=== PATIENT | female | born 1970 | race Caucasian/White ===

== ENCOUNTER 2018-06-14 07:39 | Emergency (ER) | payer MEDICAID ==
--- NOTE | 2018-06-14 08:34 | EDM.PDOC ---
ED HPI GENERAL MEDICAL PROBLEM - General Chief Complaint: Lower Extremity Injury/Pain Stated Complaint: RIGHT LEG PAIN Time Seen by Provider: 06/14/18 08:20 Source of Information: Reports: Patient History Limitations: Reports: No Limitations - History of Present Illness INITIAL COMMENTS - FREE TEXT/NARRATIVE: 48 yo female had recent R ankle surgery in [place]. She awoke this morning with increased pain in that ankle and thought her R calf was swollen. She called the nurse direct line and was told to come to the ER to be assessed for a blood clot. She denies and SOB or pleuritic chest pain. No fever. F/U in about a week in [place] is scheduled. Lives in [place]. Here with her . Onset: Today Onset Date: 06/14/18 Duration: Hour(s):, Improving (better now than when she first awoke today.) Location: Reports: Lower Extremity, Right Quality: Reports: Ache, Throbbing Severity: Moderate Improves with: Reports: Medication Worsens with: Reports: Other (medicine wearing off) Context: Reports: Other (See HPI) Associated Symptoms: Reports: No Other Symptoms Treatments OPERATIONAL RISK MANAGER: Reports: Other (see below) (prescribed pain meds) Right Ankle Pain Score (Numeric/FACES): 7 - Related Data Allergies Allergy/AdvReac Type Severity Reaction Status Date / Time blue dye Allergy Hives Verified 06/14/18 08:02 Home Meds: Home Meds Aspirin 325 mg PO DAILY 06/14/18 [History] Chlorthalidone 25 mg PO DAILY 06/14/18 [History] Levothyroxine [Synthroid] 175 mcg PO DAILY 06/14/18 [History] atorvaSTATin [Lipitor] 40 mg PO BEDTIME 06/14/18 [History] hydrOXYzine HCl [hydrOXYzine] 25 mg PO Q8H PRN 06/14/18 [History] oxyCODONE HCl/Acetaminophen [Percocet 5-325 mg Tablet] 1 tab PO Q4HR PRN [History] Past Medical History Endocrine/Metabolic History: Reports: Hypothyroidism - Past Surgical History HEENT Surgical History: Reports: Other (See Below) Other HEENT Surgeries/Procedures: ear surgeries GI Surgical History: Reports: Cholecystectomy Female Surgical History: Reports: Section Musculoskeletal Surgical History: Reports: Other (See Below) Other Musculoskeletal Surgeries/Procedures:: ligament repair and scope on right annkle Social & Family History - Tobacco Use Smoking Status *Q: Never Smoker - Recreational Drug Use Recreational Drug Use: No Review of Systems - Review of Systems Review Of Systems: See Below Constitutional: Reports: No Symptoms Eyes: Reports: No Symptoms Respiratory: Reports: No Symptoms Cardiovascular: Reports: No Symptoms Musculoskeletal: Reports: Joint Pain (R ankle after surgery) Skin: Reports: No Symptoms Neurological: Reports: No Symptoms ED EXAM, GENERAL - Physical Exam Exam: See Below Exam Limited By: No Limitations General Appearance: Alert, WD/WN, No Apparent Distress, Obese Eye Exam: Bilateral Eye: Normal Inspection Ears: Normal External Exam, Normal Canal, Hearing Grossly Normal Ear Exam: Bilateral Ear: Auricle Normal, Canal Normal Nose: Normal Inspection, No Blood Throat/Mouth: Normal Lips, Normal Voice, No Airway Compromise Head: Atraumatic, Normocephalic Neck: Normal Inspection Respiratory/Chest: No Respiratory Distress, Lungs Clear, Normal Breath Sounds, No Accessory Muscle Use Cardiovascular: Regular Rate, Rhythm, No Edema Extremities: Normal Inspection, Normal Range of Motion, Non-Tender, No Pedal Edema, Other (short leg cast on R foot/ankle. No calf pain on exam and no obvious swelling.) Neurological: Alert, Oriented, CN II-XII Intact, Normal Cognition, No Motor/ Sensory Deficits Psychiatric: Normal Affect, Normal Mood Skin Exam: Warm, Dry, Intact, Normal Color, No Rash Lymphatic: No Adenopathy Course - Vital Signs Last Recorded V/S: Last Vital Signs Temp 36.6 C 06/14/18 08:01 Pulse 70 06/14/18 08:01 Resp 17 06/14/18 08:01 BP 151/74 H 06/14/18 08:01 Pulse Ox 96 06/14/18 08:01 - Orders/Labs/Meds Orders: Active Orders 24 hr Category Date Time Status VL Duplex Lwr Ext Veins Ltd Rt [US] Stat Exams 06/14/18 08:37 Ordered Labs: Laboratory Tests 06/14/18 Range/Units 07:41 D-Dimer, Quantitative 894 H (0.0-400.0) ng/mL - Radiology Interpretation Free Text/Narrative:: Venous doppler R calf-neg Departure - Departure Time of Disposition: 09:45 Disposition: Home, Self-Care 01 Condition: Fair Clinical Impression: Post-op pain - Discharge Information *PRESCRIPTION DRUG MONITORING PROGRAM REVIEWED*: No *COPY OF PRESCRIPTION DRUG MONITORING REPORT IN PATIENT SAMSON: No Referrals: Gracie Barnard MD [Primary Care Provider] - Forms: ED Department Discharge Additional Instructions: Continue your current cares. Recheck with your orthopedic doctor this week if needed. Keep leg elevated. - My Orders Last 24 Hours: My Active Orders 06/14/18 08:37 VL Duplex Lwr Ext Veins Ltd Rt [US] Stat - Assessment/Plan Last 24 Hours: My Active Orders 06/14/18 08:37 VL Duplex Lwr Ext Veins Ltd Rt [US] Stat
--- NOTE | 2018-06-14 10:26 | CRLUS ---
INDICATION: Right leg swelling after surgery. TECHNIQUE: Ultrasound venous duplex lower right extremity. Compression venous exam was performed using cantor-scale, color Doppler, and spectral Doppler imaging. COMPARISON: None available. FINDINGS: Sonographic imaging demonstrates the right common femoral, femoral, profunda, popliteal, posterior tibial and greater saphenous veins to be fully compressible with normal color Doppler blood flow. Imaging of the contralateral left common femoral vein is normal. No abnormal fluid collection or soft tissue mass. IMPRESSION: No evidence of right lower extremity DVT. Dictated by Flavio Mckeon MD @ 06/14/2018 10:24:57 AM Dictated by: Flavio Mckeon MD @ 06/14/2018 10:25:16 (Electronically Signed)
== END 2018-06-14 09:49 | disposition home or self-care (01) ==
LOC: JP.ED 07:39
DX: G89.18 Other acute postprocedural pain (principal); M25.571 Pain in right ankle and joints of right foot; Z91.041 Radiographic dye allergy status; Z98.890 Other specified postprocedural states
CPT/HCPCS: 36415; 85379; 93971-RT; 99284-25

== ENCOUNTER 2018-06-17 12:32 | Emergency (ER) | payer MEDICAID ==
[2018-06-17] MEDS ORDERED: Bacitracin Oint 1 GM U/D Packet TOP ONE (12:55)
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
== END 2018-06-17 14:21 | disposition home or self-care (01) ==
LOC: JP.ED 12:32
DX: S61.212A Laceration without foreign body of right middle finger without damage to nail, initial encounter (principal); S61.214A Laceration without foreign body of right ring finger without damage to nail, initial encounter; S61.216A Laceration without foreign body of right little finger without damage to nail, initial encounter; E03.9 Hypothyroidism, unspecified; V89.9XXA Person injured in unspecified vehicle accident, initial encounter; Y92.513 Shop (commercial) as the place of occurrence of the external cause; Z91.02 Food additives allergy status; Z79.82 Long term (current) use of aspirin; Z79.899 Other long term (current) drug therapy
CPT/HCPCS: 12001; 99283; J2001

== ENCOUNTER 2019-09-01 17:05 | Emergency (ER) | payer OTHER, MEDICAID ==
[2019-09-01] MEDS ORDERED: Ibuprofen 600 MG Tab PO ONE (17:10)
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
== END 2019-09-01 17:55 | disposition home or self-care (01) ==
LOC: JP.ED 17:05
DX: S16.1XXA Strain of muscle, fascia and tendon at neck level, initial encounter (principal); S20.212A Contusion of left front wall of thorax, initial encounter; E03.9 Hypothyroidism, unspecified; Z79.899 Other long term (current) drug therapy; Z91.041 Radiographic dye allergy status; V89.2XXA Person injured in unspecified motor-vehicle accident, traffic, initial encounter
CPT/HCPCS: 71046; 72040; 99284; A9270

== ENCOUNTER 2019-11-23 21:40 | Emergency (ER) | payer MEDICAID ==
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
--- NOTE | 2019-11-23 23:14 | CRLCT ---
INDICATION: Visual changes and forgetfulness. TECHNIQUE: CT head without contrast. COMPARISON: None. FINDINGS: CSF spaces: Within normal limits for age. Brain parenchyma: No intracranial bleed or mass effect. Figueroa-white differentiation unremarkable. Skull base and calvarium: Trace mucosal thickening paranasal sinuses. The visualized orbits are grossly unremarkable. No skull fractures. IMPRESSION: Unremarkable noncontrast head CT. Please note that all CT scans at this facility use dose modulation, iterative reconstruction, and/or weight-based dosing when appropriate to reduce radiation dose to as low as reasonably achievable. Dictated by Faisal Ortiz MD @ Nov 23 2019 11:02PM Signed by Dr. Faisal Ortiz @ Nov 23 2019 11:13PM
== END 2019-11-23 23:14 | disposition home or self-care (01) ==
LOC: JP.ED 21:40
DX: R46.89 Other symptoms and signs involving appearance and behavior (principal); E03.9 Hypothyroidism, unspecified; Z79.899 Other long term (current) drug therapy; Z91.048 Other nonmedicinal substance allergy status
CPT/HCPCS: 70450; 99282; 99285-25

== ENCOUNTER 2020-12-28 10:56 | Emergency (ER) | payer MEDICAID ==
--- NOTE | 2020-12-28 11:43 | EDM.PDOC ---
ED HPI GENERAL MEDICAL PROBLEM - General Chief Complaint: Abdominal Pain Stated Complaint: POST SURGERY, BLOATING Time Seen by Provider: 12/28/20 11:42 Source of Information: Reports: Patient History Limitations: Reports: No Limitations - History of Present Illness INITIAL COMMENTS - FREE TEXT/NARRATIVE: Sandee is a 50-year-old female presenting to the ED for evaluation of fluid retention, intra-abdominal infection, and increased weight gain having gained 19 pounds in the last 4 days. The patient was seen and treated in the operating room at [facility] [place] for a hysterectomy. While in surgery, she was found to have an intra-abdominal infection and they aborted doing the hysterectomy and simply did lysis of adhesions and close the patient. They were not able to discern where the infection was coming from but she did have a normal-appearing appendix. The patient reports that a weeks prior she was taken to the OR for a D&C and inquired with Dr. Hipolito Meléndez whether the infection could be related to the D&C to which he stated no. She was started on doxycycline 100 mg twice daily 7 days ago. She has not had any fever or chills, however, she has had increasing wheezing, 19 pound weight gain with fluid retention in her abdomen and extremities. 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 Abdomen Pain Score (Numeric/FACES): 8 - Related Data Allergies Allergy/AdvReac Type Severity Reaction Status Date / Time blue dye Allergy Hives Verified 11/23/19 22:07 Home Meds: Home Meds Levothyroxine [Synthroid] 175 mcg PO DAILY 06/14/18 [History] atorvaSTATin [Lipitor] 40 mg PO BEDTIME 06/14/18 [History] Cholecalciferol (Vitamin D3) [Vitamin D3] 5,000 unit PO DAILY 03/05/19 [History] Ferrous Sulfate [Slow Release Iron] 500 mg PO DAILY 03/05/19 [History] Sertraline [Zoloft] 200 mg PO DAILY 03/05/19 [History] Doxycycline [Vibramycin] 100 mg PO BID 12/28/20 [History] Past Medical History Cardiovascular History: Reports: Heart Murmur Neurological History: Reports: Other (See Below) Other Neuro History: history TBI Psychiatric History: Reports: Other (See Below) Other Psychiatric History: history TBI Endocrine/Metabolic History: Reports: Hypothyroidism - Infectious Disease History Infectious Disease History: Reports: Chicken Pox - Past Surgical History HEENT Surgical History: Reports: Other (See Below) Other HEENT Surgeries/Procedures: ear surgeries GI Surgical History: Reports: Cholecystectomy Female Surgical History: Reports: Section Musculoskeletal Surgical History: Reports: Other (See Below) Other Musculoskeletal Surgeries/Procedures:: ligament repair and scope on right annkle Social & Family History - Caffeine Use Caffeine Use: Reports: None ED ROS GENERAL - Review of Systems Review Of Systems: See Below Constitutional: Reports: Weight Gain (19 pound weight gain in the last 4 days) HEENT: Reports: No Symptoms Respiratory: Reports: Shortness of Breath, Wheezing Cardiovascular: Reports: Edema Endocrine: Reports: No Symptoms GI/Abdominal: Reports: Abdominal Pain (Neurolysed). Denies: Constipation, Diarrhea, Nausea, Vomiting : Reports: Dysuria (Difficulty with urinating) Musculoskeletal: Reports: No Symptoms Skin: Reports: No Symptoms Neurological: Reports: No Symptoms Psychiatric: Reports: No Symptoms Hematologic/Lymphatic: Reports: No Symptoms Immunologic: Reports: No Symptoms ED EXAM, GI/ABD - Physical Exam Exam: See Below Exam Limited By: No Limitations General Appearance: Alert, Anxious, Obese Eyes: Bilateral: EOMI Throat/Mouth: Normal Inspection, Normal Oropharynx, Normal Voice, No Airway Compromise Head: Atraumatic, Normocephalic Neck: Normal Inspection, Supple. No: Carotid Bruit Respiratory/Chest: No Respiratory Distress, Lungs Clear, Normal Breath Sounds, No Accessory Muscle Use. No: Crackles, Rales, Rhonchi, Wheezing Cardiovascular: Normal Peripheral Pulses, Regular Rate, Rhythm, Systolic Murmur (2/6 holosystolic murmur) GI/Abdominal Exam: Normal Bowel Sounds, Soft, Non-Tender Extremities: Pedal Edema (Minimal bilateral pedal edema) Neurological: Alert, Oriented, Normal Cognition, Normal Reflexes Psychiatric: Anxious Skin Exam: Warm, Dry #1 Interpretation EKG Date: 12/28/20 Time: 12:01 Rhythm: NSR Rate (Beats/Min): 55 Sanderson: Normal P-Wave: Present QRS: Normal ST-T: Normal (Nonspecific ST-T changes especially in the anterior leads.) QT: Normal Comparison: NA - No Prior EKG Course - Vital Signs Last Recorded V/S: Last Vital Signs Temp 36.4 C 12/28/20 11:59 Pulse 55 L 12/28/20 12:31 Resp 16 12/28/20 11:59 BP 158/73 H 12/28/20 12:31 Pulse Ox 94 L 12/28/20 12:31 - Orders/Labs/Meds Orders: Active Orders 24 hr Category Date Time Status Iopamidol [Isovue-300 (61%)] Med 12/28/20 16:00 Active 150 ml IV . DIRECTED Sodium Chloride 0.9% [Saline Flush] Med 12/28/20 15:51 Active 10 ml FLUSH ONETIME PRN EKG 12 Lead [EK] Routine Ther 12/28/20 11:54 Ordered Medication Orders Iopamidol (Iopamidol 612 Mg/Ml 150 Ml Bottle) 150 ml IV . DIRECTED [facility] Last Admin: 12/28/20 16:02 Dose: 150 ml Documented by: MIR Sodium Chloride (Sodium Chloride 0.9% 10 Ml Syringe) 10 ml FLUSH ONETIME PRN PRN Reason: PER RADIOLOGY PROTOCOL Last Admin: 12/28/20 16:02 Dose: 10 ml Documented by: MIR Labs: Laboratory Tests 12/28/20 12/28/20 12/28/20 Range/Units 12:10 12:10 12:10 WBC 7.1 (4.5-11.0) K/uL RBC 4.26 (3.30-5.50) M/uL Hgb 12.2 (12.0-15.0) g/dL Hct 37.7 (36.0-48.0) % MCV 89 (80-98) fL MCH 29 (27-31) pg MCHC 32 (32-36) % Plt Count 211 (150-400) K/uL Neut % (Auto) 71.1 H (36-66) % Lymph % (Auto) 21.1 L (24-44) % [place] % (Auto) 5.5 (2-6) % Eos % (Auto) 2.2 (2-4) % Baso % (Auto) 0.1 (0-1) % Sodium 144 (140-148) mmol/L Potassium 4.5 (3.6-5.2) mmol/L Chloride 105 (100-108) mmol/L Carbon Dioxide 32 (21-32) mmol/L Anion Gap 7.2 (5.0-14.0) mmol/L BUN 12 (7-18) mg/dL Creatinine 0.7 (0.6-1.0) mg/dL Est Cr Clr Drug Dosing 76.06 mL/min Estimated GFR (MDRD) > 60 (>60) Glucose 96 (74-106) mg/dL Lactic Acid 0.9 (0.4-2.0) mmol/L Calcium 8.7 (8.5-10.1) mg/dL Total Bilirubin 0.9 (0.2-1.0) mg/dL AST 21 (15-37) U/L ALT 38 (12-78) U/L Alkaline Phosphatase 92 (46-116) U/L Troponin I (0.000-0.056) ng/mL NT-Pro-B Natriuret Pep 271 H (5-125) pg/mL Total Protein 6.2 L (6.4-8.2) g/dL Albumin 3.3 L (3.4-5.0) g/dL Globulin 2.9 (2.3-3.5) g/dL Albumin/Globulin Ratio 1.1 L (1.2-2.2) Free T4 (0.76-1.46) ng/dL TSH, Ultra Sensitive (0.358-3.740) uIU/mL Urine Color (YELLOW) Urine Appearance (CLEAR) Urine pH (5.0-8.0) Ur Specific [place] (1.008-1.030) Urine Protein (NEGATIVE) mg/dL Urine Glucose (UA) (NEGATIVE) mg/dL Urine Ketones (NEGATIVE) mg/dL Urine Occult Blood (NEGATIVE) Urine Nitrite (NEGATIVE) Urine Bilirubin (NEGATIVE) Urine Urobilinogen (0.2-1.0) EU/dL Ur Leukocyte Esterase (NEGATIVE) Urine RBC (0-5) Urine WBC (0-5) Ur Epithelial Cells Amorphous Sediment Urine Bacteria Urine Mucus 12/28/20 12/28/20 12/28/20 Range/Units 12:10 12:10 12:15 WBC (4.5-11.0) K/uL RBC (3.30-5.50) M/uL Hgb (12.0-15.0) g/dL Hct (36.0-48.0) % MCV (80-98) fL MCH (27-31) pg MCHC (32-36) % Plt Count (150-400) K/uL Neut % (Auto) (36-66) % Lymph % (Auto) (24-44) % [place] % (Auto) (2-6) % Eos % (Auto) (2-4) % Baso % (Auto) (0-1) % Sodium (140-148) mmol/L Potassium (3.6-5.2) mmol/L Chloride (100-108) mmol/L Carbon Dioxide (21-32) mmol/L Anion Gap (5.0-14.0) mmol/L BUN (7-18) mg/dL Creatinine (0.6-1.0) mg/dL Est Cr Clr Drug Dosing mL/min Estimated GFR (MDRD) (>60) Glucose (74-106) mg/dL Lactic Acid (0.4-2.0) mmol/L Calcium (8.5-10.1) mg/dL Total Bilirubin (0.2-1.0) mg/dL AST (15-37) U/L ALT (12-78) U/L Alkaline Phosphatase (46-116) U/L Troponin I < 0.017 (0.000-0.056) ng/mL NT-Pro-B Natriuret Pep (5-125) pg/mL Total Protein (6.4-8.2) g/dL Albumin (3.4-5.0) g/dL Globulin (2.3-3.5) g/dL Albumin/Globulin Ratio (1.2-2.2) Free T4 1.35 (0.76-1.46) ng/dL TSH, Ultra Sensitive 2.357 (0.358-3.740) uIU/mL Urine Color Yellow (YELLOW) Urine Appearance Clear (CLEAR) Urine pH 6.0 (5.0-8.0) Ur Specific [place] >= 1.030 (1.008-1.030) Urine Protein Negative (NEGATIVE) mg/dL Urine Glucose (UA) Negative (NEGATIVE) mg/dL Urine Ketones Negative (NEGATIVE) mg/dL Urine Occult Blood Negative (NEGATIVE) Urine Nitrite Negative (NEGATIVE) Urine Bilirubin Negative (NEGATIVE) Urine Urobilinogen 0.2 (0.2-1.0) EU/dL Ur Leukocyte Esterase Negative (NEGATIVE) Urine RBC 0-5 (0-5) Urine WBC 0-5 (0-5) Ur Epithelial Cells Moderate Amorphous Sediment Not seen Urine Bacteria Few Urine Mucus Not seen Meds: Medications Generic Name Dose Route Start Last Admin Trade Name Freq PRN Reason Stop Dose Admin Iopamidol 150 ml 12/28/20 16:00 12/28/20 16:02 Iopamidol 612 Mg/Ml 150 Ml Bottle IV 150 ml . DIRECTED ROB Administration Sodium Chloride 10 ml 12/28/20 15:51 12/28/20 16:02 Sodium Chloride 0.9% 10 Ml Syringe FLUSH 10 ml ONETIME PRN Administration PER RADIOLOGY PROTOCOL Discontinued Medications Generic Name Dose Route Start Last Admin Trade Name Freq PRN Reason Stop Dose Admin Sodium Chloride 85 mls @ 3 mls/sec 12/28/20 15:51 12/28/20 16:02 Normal Saline IV 12/28/20 15:52 3 mls/sec ONETIME ONE Administration - Radiology Interpretation Free Text/Narrative:: I reviewed the edges of the CT of the abdomen and pelvis with contrast as well as the report. The report is as follows: Lung bases: Heart size normal. Minimal bibasilar atelectasis. Liver/biliary system: Enlarged liver. Steatosis. No focal mass or biliary ductal dilation. Surgically absent gallbladder. Adrenals: Normal Kidneys, ureters, and bladder: There are small stones identified in the left and 1 to 2 mm range but there is no evidence for current or recent obstructive uropathy. 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 The bladder is visualized and appears normal. Spleen: Normal appearance. Pancreas: Appears normal. Retroperitoneum and mesentery: There is no mass, adenopathy, or aortic aneurysm. Gastrointestinal system: There is no evidence of diverticulitis, colitis, mechanical obstruction, or appendicitis. The small bowel is visualized and appears normal. Mild fecal retention. No acute GI findings. Pelvis: Mild free fluid in the pelvis. Osseous structures and abdominal wall: The osseous structures appear normal. There is diffuse subcutaneous induration involving the abdominal wall, however, there is dermal skin thickening and abnormal enhancement of the low left anterior abdominal wall which probably represents cellulitis. A collection is noted in the fatty tissue in the area measuring about 4.7 x 3.5 cm. In the anterior posterior dimension this is about 7 cm. This does not contain gas. Differential considerations include hematoma, seroma, or infected fluid collection. This does not have a heterogeneous enhancing discrete wall to suggest a well-formed abscess. Other: No free fluid or free air. Dictated by Bob Garcia MD at 12/28/2020 4:24:48. - Re-Assessments/Exams Free Text/Narrative Re-Assessment/Exam: 12/28/20 16:53 reviewed the labs showing a normal CBC with a leukocyte count of 7.1, globin of 12.2, hematocrit 37.7 and a platelet count of 211,000. The apprehensive metabolic profile is normal with a sodium 144, potassium 4.5, chloride 105, bicarbonate of 32, BUN of 12 with a creatinine of 0.7 and a glucose of 96. AST, ALT, and alkaline phosphatase are all normal. The remainder of the comprehensive panel is normal. GFR is calculated at greater than 60. BNP is 271, troponin I is less than 0.017. TSH is 2.357 and a free T4 is 1.35. Urinalysis is unremarkable. The CT of the abdomen and pelvis with contrast shows a abdominal wall cellulitis which is likely the cause for the patient's pain. She is already on doxycycline for this and has a normal leukocyte count. She should continue to follow-up with her primary surgeon concerning the ongoing treatment of her cellulitis. Departure - Departure Time of Disposition: 16:55 Disposition: Home, Self-Care 01 Clinical Impression: Cellulitis of left abdominal wall - Discharge Information Instructions: Abdominal Pain, Adult, [id number], Cellulitis, Adult Referrals: Gracie Barnard MD [Primary Care Provider] - Forms: ED Department Discharge Care Plan Goals: Your work-up today shows that you have a significant infection in the left abdominal wall extending from the skin into the soft tissues. There is also evidence of a seroma which is a collection of blood that is relieving the plasma in the soft tissue adjacent to this infection. I would talk with your surgeon concerning this as they may want to put a drain into it. There was no other evidence for infection throughout the abdomen or pelvis on your CT today. Continue with the antibiotics as before. Sepsis Event Note (ED) - Focused Exam Vital Signs: Vital Signs Temp Pulse Resp BP Pulse Ox 12/28/20 12:31 55 L 158/73 H 94 L 12/28/20 11:59 36.4 C 54 L 16 151/71 H 95 12/28/20 11:20 36.4 C 54 L 16 151/71 H 95 - Problem List & Annotations (1) Cellulitis of left abdominal wall SNOMED Code(s): 23114501 Code(s): L03.311 - CELLULITIS OF ABDOMINAL WALL Status: Acute Priority: High Current Visit: Yes - Problem List Review Problem List Initiated/Reviewed/Updated: Yes - My Orders Last 24 Hours: My Active Orders 12/28/20 11:54 EKG 12 Lead [EK] Routine 12/28/20 15:51 Sodium Chloride 0.9% [Saline Flush] 10 ml FLUSH ONETIME PRN 12/28/20 16:00 Iopamidol [Isovue-300 (61%)] 150 ml IV . DIRECTED - Assessment/Plan Last 24 Hours: My Active Orders 12/28/20 11:54 EKG 12 Lead [EK] Routine 12/28/20 15:51 Sodium Chloride 0.9% [Saline Flush] 10 ml FLUSH ONETIME PRN 12/28/20 16:00 Iopamidol [Isovue-300 (61%)] 150 ml IV . DIRECTED
--- NOTE | 2020-12-28 13:28 | CR ---
CHEST: 2 view CLINICAL HISTORY:Fluid retention, wheezing COMPARISON:09/01/2019 FINDINGS: The heart is borderline enlarged. Vascular appears normal. There is diffuse interstitial prominence bilaterally. There are no effusions.. IMPRESSION: Generalized interstitial prominence. This may represent some diffuse interstitial edema or pneumonitis Mild cardiomegaly
[2020-12-28] MEDS ORDERED: Sodium Chloride 0.9% 10 ML Syringe FLUSH PRN (15:51)
[2020-12-28] MEDS ORDERED: Iopamidol 612 MG/ML 150 ML Bottle IV SCH (16:00)
--- NOTE | 2020-12-28 16:26 | CRLCT ---
For Patients: As a result of the 21st Century Cures Act, medical imaging exams and procedure reports are released immediately into your electronic medical record. You may view this report before your referring provider. If you have questions, please contact your health care provider. INDICATION: No abdominal pain with history of infection. COMPARISON: There are no prior studies for comparison TECHNIQUE: CT examination of the abdomen and pelvis was performed following the uneventful intravenous administration of 150 cc of Isovue-300. Thin section axial images were obtained from the lung bases through the pubic symphysis. Oral contrast was not administered. Please note that all CT scans at this facility use dose modulation, iterative reconstruction, and/or weight-based dosing when appropriate to reduce radiation dose to as low as reasonably achievable. FINDINGS: LUNG BASES: Heart size normal. Minimal basilar atelectasis. LIVER/BILIARY SYSTEM:Enlarged liver. Steatosis. No focal mass or biliary ductal dilatation.Surgically absent gallbladder. ADRENALS: Normal KIDNEYS, URETERS and BLADDER:There are small stones identified on the left in the 1-2 millimeter range but there is no evidence of current or recent obstructive uropathy. Low-density fat containing 1 centimeter lesion in the left kidney consistent with an angio myelolipoma. The bladder as visualized appears normal. SPLEEN:Normal appearance. PANCREAS: Appears normal. RETROPERITONEUM and MESENTERY: There is no mass, adenopathy or aortic aneurysm. GASTROINTESTINAL SYSTEM: There is no evidence of diverticulitis, colitis, mechanical obstruction, or appendicitis. The small bowel as visualized appears normal.Mild fecal retention. No acute GI findings. PELVIS: Mild free fluid in the pelvis.. OSSEOUS STRUCTURES and ABDOMINAL WALL: The osseous structures appear normal. There is a diffuse subcutaneous induration involving the abdominal wall. However, there is dermal skin thickening and abnormal enhancement in the low left anterior abdominal wall which probably represents cellulitis. A collection is noted in the fatty tissue in this area measuring about 4.7 x 3.5 centimeters. In the anteroposterior dimension this is about 7 centimeters. This does not contain gas. Differential considerations include hematoma, seroma or infected fluid collection. This does not have a heterogeneous enhancing discrete wall to suggest a well-formed abscess. OTHER: No free fluid or free air. IMPRESSION: 1. Cutaneous and subcutaneous induration of the low anterior milder left abdominal wall which is probably due to cellulitis. There is a relatively well-circumscribed fluid collection in the subcutaneous fatty tissues measure about 4.7 x 3.5 x 7.0 centimeters. This does not contain gas. This could be a hematoma, seroma or infected fluid collection. 2. Hepatomegaly. Steatosis. Surgically absent gallbladder. Mild fluid in the pelvis. No collection within the abdomen or pelvis. Please note that all CT scans at this facility use dose modulation, iterative reconstruction, and/or weight-based dosing when appropriate to reduce radiation dose to as low as reasonably achievable. Dictated by Bob Garcia MD @ 12/28/2020 4:24:48 PM (Electronically Signed)
[2020-12-28] MEDS ORDERED: Ketorolac 30 MG/ML SDV IVPUSH ONE (16:57)
== END 2020-12-28 17:25 | disposition home or self-care (01) ==
LOC: JP.ED 10:56
DX: L03.311 Cellulitis of abdominal wall (principal); E03.9 Hypothyroidism, unspecified; Z91.048 Other nonmedicinal substance allergy status; Z79.899 Other long term (current) drug therapy
CPT/HCPCS: 36415; 71046; 74177; 80053; 81001; 83605; 83880; 84439; 84443; 84484; 85025; 93005; 96374; 99284; J1885; Q9967

== ENCOUNTER 2021-03-02 07:56 | Day surgery (SDC) | payer MEDICAID ==
[~2021-03-02 07:56] MED LIST: Midazolam 1 MG/ML 2 ML SDV ONE; Propofol 200 MG/20 ML SDV ONE; fentaNYL 100 MCG/2 ML SDV ONE
[2021-03-02] MEDS ORDERED: Sodium Chloride 0.9% 1,000 ML IV SCH (09:15)
== END 2021-03-02 11:09 | disposition home or self-care (01) ==
LOC: JP.SDS 07:56
PROVIDERS: ATTEND Surgery
DX: D12.4 Benign neoplasm of descending colon (principal); K65.1 Peritoneal abscess; I10 Essential (primary) hypertension; E11.9 Type 2 diabetes mellitus without complications
CPT/HCPCS: J2250; J2704; J3010

== ENCOUNTER 2021-03-23 03:52 | Emergency (ER) | payer MEDICAID ==
[2021-03-23] MEDS ORDERED: Ondansetron 4 MG/2 ML SDV IVPUSH ONE (04:42)
[2021-03-23] MEDS ORDERED: HYDROmorphone 0.5 MG/0.5 ML Syringe IVPUSH ONE (04:42)
[2021-03-23] MEDS ORDERED: Sodium Chloride 0.9% 1,000 ML IV SCH ×2 (04:45→05:30)
[2021-03-23 05:48] LABS: CORONAVIRUS COVID-19 NAA NEGATIVE (NEGATIVE)
[2021-03-23] MEDS ORDERED: Iopamidol 612 MG/ML 100 ML Bottle IV PRN (05:59)
[2021-03-23] MEDS ORDERED: Sodium Chloride 0.9% 75 ML IV SCH (06:00)
[2021-03-23] MEDS ORDERED: fentaNYL 100 MCG/2 ML SDV IVPUSH ONE (08:55)
== END 2021-03-23 09:53 | disposition home or self-care (01) ==
LOC: JP.ED 03:52
DX: A08.4 Viral intestinal infection, unspecified (principal); E78.00 Pure hypercholesterolemia, unspecified; J45.909 Unspecified asthma, uncomplicated; E03.9 Hypothyroidism, unspecified; Z88.0 Allergy status to penicillin; Z91.048 Other nonmedicinal substance allergy status; Z79.82 Long term (current) use of aspirin; Z79.899 Other long term (current) drug therapy; Z20.822 Contact with and (suspected) exposure to COVID-19
CPT/HCPCS: 0241U; 36415; 71045; 74177; 80053; 81001; 84443; 85025; 86140; 87086; 87493; 96374; 96375; 99283; 99284; J1170; J2405; J3010; J7030; Q9967